=== PATIENT | male | born 1960 | race Caucasian/White ===

== ENCOUNTER → 2025-01-01 11:00 | Outpatient (BNV) | payer MEDICARE, MEDICAID, SELFPAY | PROVIDERS: PCP Family Medicine; Visit Provider Radiology Diagnostic Radiology | DX: M47.815 Spondylosis without myelopathy or radiculopathy, thoracolumbar region (principal); M48.061 Spinal stenosis, lumbar region without neurogenic claudication | CPT/HCPCS: 72148 ==

== ENCOUNTER 2025-01-01 11:13 | Outpatient (REF) | payer MEDICARE, MEDICAID, SELFPAY ==
--- NOTE | ~2025-01-01 | MR_ITS ---
EXAMINATION: MR LUMBAR SPINE WITHOUT CONTRAST CLINICAL INFORMATION: [Other Intervertebral disc disease, lumbar region. COMPARISON: None available. TECHNIQUE: MRI of the lumbar spine was obtained using routine sequences without contrast. FINDINGS: Last rib-bearing vertebra labeled T12. Bone marrow STIR signal within the endplates of L3-4 and to a lesser extent L1-2 and T12-L1. Moderate type I endplate changes at L3-4. Modic type II endplate changes at L1 to, L2-3 and L5-S1. Levoconvex rotoscoliosis apex at L2-3. Multilevel marginal osteophyte formation, endplate irregularity, decreased intervertebral disc height and signal throughout the axial skeleton. Grade 1 retrolisthesis L5-S1 and to a lesser extent L4-5. Grade 1 anterolisthesis L1-2 and L3-4. Conus medullaris ends at inferior endplate of L1 with normal signal. T11-12: Bilateral facet joint hypertrophy. No herniated disc. T12-L1: Broad-based disc bulging. Facet joint and ligamentum flavum hypertrophy. Reduced AP diameter of the thecal sac. Left neuroforamina narrowing. No compression upon neural elements. L1-2: Broad-based disc bulging. Facet joint and ligamentum flavum hypertrophy. Reduced AP diameter of the thecal sac. Left neuroforamina narrowing. L2-3: Broad-based disc bulging. Facet joint and ligamentum flavum hypertrophy. Reduced AP diameter of the thecal sac. Right neuroforamina narrowing likely secondary to scoliosis. L3-4: Broad-based disc bulging. Facet joint and ligamentum flavum hypertrophy. Reduced AP diameter of the thecal sac encroaching the L4 nerve roots on the lateral recesses, right greater than the left side. Right neuroforamina stenosis encroaching right L3 nerve root. L4-5: Broad-based disc bulging. Facet joint hypertrophy. Reduced AP diameter of the thecal sac abutting the L5 nerve roots on the lateral recesses. Left neuroforamina stenosis encroaching the left L4 nerve root. L5-S1: Grade 1 retrolisthesis. Broad-based disc bulging. Reduced AP diameter of the thecal sac abutting the S1 nerve roots. Bilateral facet joint hypertrophy. Bilateral neuroforamina narrowing, left greater than the right side likely encroaching the left L5 nerve root. Asymmetric volume loss of the right psoas muscle likely related to denervation. No prevertebral compartment hematoma, mass or fluid collection. MR/MR lumbar spine wo con IMPRESSION: Multilevel thoracolumbar spondylosis and levoconvex rotoscoliosis apex at L2-3 resulting in central spinal canal stenosis at L3-4 and to a lesser extent L1 to and L4-5 levels and right neuroforamina stenosis L3-4 and left neuroforamina stenosis L4-5 and L5-S1. Electronically signed by: Willian Alvarado MD 01/02/2025 07:49 AM EDT
--- OUTSIDE RECORDS SUMMARY | 2025-01-01 11:24 | XMS_ITS | Encounter Summary ---
Author Organization [email or web address] Address [address] [facility] [address] [place] [address] Care Team Providers Care Rfid Technician Name Role Phone Marisela Donato Unavailable Unavailable Libra Funez MD Primary Care Provider [phone] Encounter Details Date Type Department Care Team (Latest Contact Info) Description 03/15/2019 Abstract [facility] CONVERSION[facility] Dental, Provider, DDS Social History Tobacco Use Types Packs/Day Years Used Date Smoking Tobacco: Never Assessed Sex and Gender Information Value Date Recorded Sex Assigned at Male 03/02/2022 10:36 AM EDT Legal Sex Male 9:29 AM EDT Gender Identity Male 05/30/2024 1:18 PM EST Sexual Orientation Straight 05/30/2024 1: 18 PM EST documented as of this encounter Plan of Treatment Upcoming Encounters Date Type Department Care Team (Late st Contact Info) Description 01/08/2025 11:00 AM EDT Office Visit [facility] MED[facility] [address] [place] [address] Libra Funez MD [address] [place] [address] documented as of this encounter Visit Diagnoses Not on filedocumented in this encounter Care Teams Rfid Technician Relationship Specialty Start Date End Date Libra Funez MD [address] [place] [address] PCP - General Family Medicine 05/30/24 Marisela Donato Community Health Worker 03/03/23 documented as of this encounter
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
--- OUTSIDE RECORDS SUMMARY | 2025-01-01 11:24 | XMS_ITS | Clinical Summary ---
Author Organization [employer] Address [address] [facility] 7[address] [place] [address] Care Team Providers Care Foam Dispenser Name Role Phone Marisela Donato Unavailable Unavailable Libra Funez MD Primary Care Provider [phone] Allergies No known active allergies Medications * This document contains information received from the source organization and may not represent a complete record from that organization. methadone (Dolophine) 10 MG/5ML solution Take 1.25 mL by mouth every 12 (twelve) hours. Active escitalopram (Lexapro) 10 MG tabletIndicati ons:PTSD (post-traumati c stress disorder) Take 1 tablet (10 mg) by mouth Once per day. 90 tablet 1 5 026 Active clonazePAM (KlonoPIN) 1 MG tabletIndicati ons:Anxiety Take 1 tablet (1 mg) by mouth 3 times daily for 28 days. 84 tablet 5 025 Active escitalopram (Lexapro) 10 MG tabletIndicati ons:PTSD (post-traumati c stress disorder) Take 1 tablet (10 mg) by mouth Once per day. 90 tablet 1 5 025 Discontinued(Re order (will not trigger notification to Pharmacy)) clonazePAM (KlonoPIN) 1 MG tabletIndicati ons:Anxiety Take 1 tablet (1 mg) by mouth 3 times daily for 28 days. 84 tablet 5 025 Discontinued(Re order (will not trigger notification to Pharmacy)) Active Problems Problem Noted Date Diagnosed Date Anxiety 09/12/2024 PTSD (post-traumatic stress disorder) 09/12/2024 Encounters Date Type Department Care Team Description 12/19/2024 Results Follow-Up [address] [address] Libra Funez MD Liver Fibrosis, FibroTest-ActiTest Panel 307084, Lipid Panel, Standard 95651 12/18/[address] [address] Liudmila Stevenson DO Anxiety 12/18/[address] [address] Libra Funez MD PTSD (post-traumatic stress disorder) 12/12/2024 11:15 AM EDT Clinical Support [address] [address] Jessika Thurston RN Degenerative disc disease at L5-S1 level; Chronic pain of left knee; Chronic pain of right knee 12/04/2024 9:30 AM EDT Office Visit [address] [address] Libra Funez MD Chronic pain of left knee (Primary Dx); Chronic pain of right knee; Screening for metabolic disorder; History of hepatitis C 11/17/[address] [address] Libra Funez MD Anxiety 10/17/[address] [address] Libra Funez MD Anxiety; PTSD (post-traumatic stress disorder) from Last 3 Months Social History Tobacco Use Types Packs/Day Years [...] your housing situation today? I have bernard oconnell 03/03/[address] you li [...] Orientation Straight 05/30/2024 1: 18 PM EST Last Filed Vital Signs Vital Sign Reading Time Taken Comments Blood Pressure 130/89 12/04/2024 9:28 AM EDT Pulse 57 12/04/2024 9:28 AM EDT Temperature - - Respiratory Rate 20 12/04/2024 9:28 AM EDT Oxygen Saturation - - Inhaled Oxygen Concentration - - Weight 94.3 kg (207 lb 12.8 oz) 12/04/2024 9:28 AM EDT Height 180.3 cm (5' 11 ) 07/17/2024 10: 04 AM EDT Body Mass Index 28.98 07/17/2024 10:04 AM EDT Plan of Treatment Upcoming Encounters Date Type Department Care Team (Late st Contact Info) Description 01/08/2025 11:00 AM EDT Office Visit [facility] MED[facility] [address] [place] [address] Libra Funez MD [address] [place] [address] Health Maintenance Due Date Last Done Comments CT Colonography 1959 Colonoscopy 1959 Colorectal Cancer Screening 1959 FIT DNA/Cologuard 1959 FIT 1959 FOBT 1959 SDOH Screening 1959 Sigmoidoscopy 1959 Alcohol/Substance Use Screening 1971 Tobacco Screening 1971 Hepatitis A Vaccines (2 of 2 - Risk 2-dose series) 08/15/2004 02/15/2004 RSV Patients and Patients Aged 60 years or older (1 - Risk 60-74 years 1-dose series) 2019 Zoster Vaccines (2 of 2) 04/09/2024 02/13/2024 COVID-19 Vaccine (2023- season) 2024 02/13/2024, 03/01/2023, 10/09/2021, Additional history exists Influenza Vaccine (#1) 2025 , 12/23/2022, 03/01/2021, Additional history exists Depression Screening 09/12/2025 09/12/2024, 09/13/19 25 DTaP/Tdap/Td Vaccines (3 - Td or Tdap) 08/02/2028 08/02/2018, 06/29/2008 Lipid Panel 12/14/2029 12/14/2024 Hepatitis B Vaccines Completed 06/30/2016, 11/21/2015, 10/18/2015, Additional history exists Pneumococcal Vaccine: 50+ Years Completed 02/13/2024, 02/15/2004 HIB Vaccines Aged Out No longer eligi ble based on patient's age to complete this topic HPV Vaccines Aged Out No longer eligi ble based on patient's age to complete this topic IPV Vaccines Aged Out No longer eligi ble based on patient's age to complete this topic Meningococcal B Vaccine Aged Out No l onger eligible based on patient's age to complete this topic Meningococcal Vaccine Aged Out No mariama trent eligible based on patient's age to complete this topic RSV under 20 months Aged Out No longe r eligible based on patient's age to complete this topic Rotavirus Vaccines Aged Out No longer eligible based on patient's age to complete this topic Procedures Procedure Name Priority Date/Time Associated Diagnosis Comments HCV RT-PCR, QUANT (NON-GRAPH) (NON ORDERABLE) Routine 12/14/2024 10:51 AM EDT LIVER FIBROSIS, FIBROTEST ACTITEST PANEL Routine 12/14/2024 10:51 AM EDT History of hepatitis C HEMOGLOBIN A1C Routine 12/14/2024 10:51 AM EDT Screening for metabolic disorder HEPATITIS C AB W/REFLEX TO HCV QUANT NAAT IF POSITIVE Routine 12/14/2024 10:51 AM EDT History of hepatitis C COMPREHENSIVE METABOLIC PANEL Routine 12/14/2024 10:51 AM EDT Screening for metabolic disorder LIPID PANEL, STANDARD Routine 12/14/2024 10:51 AM EDT Screening for metabolic disorder XR KNEE 1-2 VIEWS LEFT Routine 12/13/2024 Chronic pain of left knee XR KNEE 1-2 VIEWS RIGHT Routine 12/13/2024 Chronic pain of right knee from Last 3 Months Results * HCV RT-PCR, Quant (Non-Graph) (12/14/2024 10:51 AM EDT) Pathologist [facility] Hepatitis C Quantitation HCV Not Detected IU/mL [facility] 2 Test Information [facility] 2 Comment:The quantitative ran ge of this assay is 15 IU/mL to 100 million IU/mL. Interpretation: [facility] 2 Comment: Positive HCV antibody screen without the presence of HCV RNA is consistent with a resolved past infection or a false positive HCV antibody. Consider repeat testing after one month. 12/14/2024 10:5 1 AM EDT 12/14/2024 Narrative Resulting Agency Comment Performed at: - [address] [id number] Order To Delivery Supervisor: Maria Victoria Pineda MD, Phone: [phone] us Lbira Funez MD HISTORICAL/NON ORDERABLE LABS Final Result Performing Organization Address City/[facility]/ZIP Co de Phone Number [facility] 2 * (ABNORMAL) Hepatitis C Virus (HCV) Antibody With Reflex to Quantitative Real- time PCR [[id number]] (12/14/2024 10:51 AM EDT) [facility] HCV Ab Reactive(A ) Non Reactive [facility] 1 Blood Venous blood specimen / Unknown 12/14/2024 10:51 AM EDT 12/14/2024 Narrative Resulting Agency Comment Performed at: - [place] [address], [address], [place], [place] [id number] Order To Delivery Supervisor: Alfredito Pond MD, Phone: [phone] us Libra Funez MD LAB BLOOD ORDERABLES Final Res ult [facility] 1 * (ABNORMAL) Liver Fibrosis, FibroTest-ActiTest Panel [id number] (12/14/2024 10:51 AM EDT) Pathologist [facility] Fibrosis Score 0.51(H) 0.00 - 0.21 [facility] 1 Fibrosis Stage [facility] 1 Comment:F2 - Bridging fibros is with few septa Necroinflammat Act Score 0.10 0.00 - 0.17 [facility] 1 Necroinflammat Act Grade A0-No activity [facility] 1 Methodology: [facility] 1 Comment: The analytes tested are performed by FibroSure-Specific methods. Not intended for use with other diagnostic considerations. [place] 2 Macroglobulin 403(H) 110 - 276 mg/dL [facility] 1 Haptoglobin 102 32 - 363 mg/dL [facility] 1 Apolipoprotein A1 127 101 - 178 mg/dL [facility] 1 Total Bilirubin 0.3 0.0 - 1.2 mg/dL [facility] 1 GGT 10 0 - 65 IU/L [facility] 1 ALT 19 0 - 55 IU/L [facility] 1 Interpretations: [facility] 1 Comment: Quantitative results of 6 biochemical tests are analyzed using a computational algorithm to provide a quantitative surrogate marker (0.0-1.0) for liver fibrosis (METAVIR F0-F4) and for necroinflammatory activity (METAVIR A0-A3). Fibrosis Scoring: [facility] 1 Comment: <=0.21 = Stage F0 - No fibrosis 0.21 - 0.27 = Stage F0 - F1 0.27 - 0.31 = Stage F1 - Portal fibrosis 0.31 - 0.48 = Stage F1 - F2 0.48 - 0.58 = Stage F2 - Bridging fibrosis with few septa 0.58 - 0.72 = Stage F3 - Bridging fibrosis with many septa 0.72 - 0.74 = Stage F3 - F4 >0.74 = Stage F4 - Cirrhosis Necroinflamm Activity Scoring: [facility] 1 Comment: <0.17 = Grade A0 - No Activity 0.17 - 0.29 = Grade A0 - A1 0.29 - 0.36 = Grade A1 - Minimal activity 0.36 - 0.52 = Grade A1 - A2 0.52 - 0.60 = Grade A2 - Moderate activity 0.60 - 0.62 = Grade A2 - A3 >0.62 = Grade A3 - Severe activity Limitations: [facility] 1 Comment: The negative predictive value of a Fibrotest score <0.31 (absence of clinically significant fibrosis) was 85% when compared to liver biopsy in 1,270 HCV infected patients with a 38% prevalence of significant liver fibrosis (F2, 3 or 4). The positive predictive value of a Fibro- test score >0.48 (F2, 3, 4) was 61% in that same patient cohort. HCV FibroSURE is not recommended in patients with Gilbert Disease, acute hemolysis (e.g. HCV ribavirin therapy mediated hemolysis) acute hepa- titis of the liver, extra-hepatic cholestasis, transplant patients, and/or renal insufficiency patients. Any of these clinical situations may lead to inaccurate quantitative predictions of fibrosis and necroinflammatory activity in the liver. Comment: [facility] 1 Comment: This test was developed and its performance characteristics determined by [facility]. It has not been cleared or approved by the Food and Drug Administration. The FDA has determined that such clearance or approval is not necessary. For questions regarding this report please contact customer service at . Blood Venous blood specimen / Unknown 12/14/2024 10:51 AM EDT 12/14/2024 Narrative Resulting Agency Comment Performed at: [facility] [id number] Order To Delivery Supervisor: Melanie Landry MD, Phone: [phone] Libra Funez MD LAB BLOOD ORDERABLES Final Res ult Performing Organization Address [facility] Co de Phone Number [facility] 1 * Hemoglobin A1c (12/14/2024 10:51 AM EDT) [facility] Hemoglobin A1c 5.4 4.8 - 5.6 % [facility] 1 Comment: Prediabetes: 5.7 - 6.4 Diabetes: >6.4 Glycemic control for adults with diabetes: <7.0 Blood Venous blood specimen / Unknown 12/14/2024 10:51 AM EDT 12/14/2024 Narrative Resulting Agency Comment Performed at: [facility] [id number] Order To Delivery Supervisor: Maria Victoria Pineda MD, Phone: [phone] Libra Funez MD LAB BLOOD ORDERABLES Final Res ult Performing Organization Address [facility] Co de Phone Number [facility] 1 * (ABNORMAL) Lipid Panel, Standard 94959 (12/14/2024 10:51 AM EDT) Cholesterol, Total 175 100 - 199 mg/dL [facility] 1 Triglycerides 131 0 - 149 mg/dL [facility] 1 HDL Cholesterol 40 >39 mg/dL [facility] 1 VLDL Cholesterol Jone 24 5 - 40 mg/dL [facility] 1 LDL Chol Calc (NIH) 111(H) 0 - 99 mg/dL [facility] 1 Blood Venous blood specimen / Unknown 12/14/2024 10:51 AM EDT 12/14/2024 Narrative Resulting Agency Comment Performed at: 01 - [facility] [address] [id number] Order To Delivery Supervisor: Maria Victoria Pineda MD, Phone: [phone] us Libra Funez MD LAB BLOOD ORDERABLES Final Res ult [facility] 1 * Comprehensive Metabolic Panel (12/14/2024 10:51 AM EDT) Pathologist [facility] Glucose 85 70 - 99 mg/dL [facility] 1 Urea Nitrogen (BUN) 16 8 - 27 mg/dL [facility] 1 Creatinine, Serum 1.04 0.76 - 1.27 mg/dL [facility] 1 eGFR 80 >59 mL/min/1.7 3 [facility] 1 BUN/Creatinine Ratio 15 10 - 24 [facility] 1 Sodium 140 134 - 144 mmol/L [facility] 1 Potassium 4.4 3.5 - 5.2 mmol/L [facility] 1 Chloride 101 96 - 106 mmol/L [facility] 1 Anion Gap 16.0 10.0 - 18.0 mmol/L [facility] 1 Carbon Dioxide 23 20 - 29 mmol/L [facility] 1 Calcium 9.2 8.6 - 10.2 mg/dL [facility] 1 Protein, Total 7.1 6.0 - 8.5 g/dL [facility] 1 Albumin 4.3 3.9 - 4.9 g/dL [facility] 1 Globulin 2.8 1.5 - 4.5 g/dL [facility] 1 Bilirubin, Total 0.6 0.0 - 1.2 mg/dL [facility] 1 Alkaline Phosphatase 72 44 - 121 IU/L [facility] 1 AST 25 0 - 40 IU/L [facility] 1 ALT 17 0 - 44 IU/L [facility] 1 Blood Venous blood specimen / Unknown 12/14/2024 10:51 AM EDT 12/14/2024 Narrative Resulting Agency Comment Performed at: 01 - [facility] [address] [id number] Order To Delivery Supervisor: Maria Victoria Pineda MD, Phone: [phone] us Libra Funez MD LAB BLOOD ORDERABLES Final Res ult [facility] 1 * XR Knee 1-2 Views Right (12/13/2024) Anatomical Region Laterality Modality Lower Extremities, Knee Right Radiogra phic Imaging us Libra Funez MD IMG XR PROCEDURES Final Result * XR Knee 1-2 Views Left (12/13/2024) Anatomical Region Laterality Modality Lower Extremities, Knee Left Radiogra phic Imaging us Libra Funez MD IMG XR PROCEDURES Final Result from Last 3 Months Insurance MEDICARE [facility] Care Teams Foam Dispenser Relationship Specialty Start Date End Date Libra Funez MD [address] [place] [id number] PCP - General Family Medicine 05/30/24 Marisela Donato Community Health Worker 03/03/23
--- OUTSIDE RECORDS SUMMARY | 2025-01-01 11:24 | XMS_ITS | Patient Health Record ---
Author Organization [facility] Address [address] [place], [place] [id number] Care Team Providers Care Vacuum Evaporation Operator Name Role Phone [employer] - DO NOT USE, [facility] Primary Care Provider Unavailable [facility] Unavailable [phone] Reason For Referral No Information Plan Of Treatment No Information Insurance Providers Payer Name Payer Address Payer Phone Subscriber Number Group Number Insured Name Patient Relationship to Insured Coverage Start Date Coverage End Date [place] Medicaid Standard [address] [place] [address] [phone] [id number] STEFANY CISNEROS Self - patient is the insured 3
== END 2025-01-01 11:14 | disposition home or self-care (01) ==
LOC: HO.MRI 11:13
PROVIDERS: PCP Family Medicine; Visit Provider Family Medicine
DX: M51.379 Other intervertebral disc degeneration, lumbosacral region without mention of lumbar back pain or lower extremity pain (principal)
CPT/HCPCS: 72148